=== PATIENT | female | born 1995 | race American Indian/Alaskan Native ===

== ENCOUNTER 2019-08-25 08:18 | Emergency (ER) | payer SELFPAY ==
[2019-08-25] MEDS ORDERED: KETOROLAC 30 MG/1 ML INJ IM ONE (10:20)
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
[2019-08-25 11:52] VITALS: BP 105/70
== END 2019-08-25 11:52 | disposition home or self-care (01) ==
LOC: ED 08:18
DX: R51 Headache (principal); Z79.899 Other long term (current) drug therapy
CPT/HCPCS: 96372; 99282; J1885